=== PATIENT | male | born 1995 | race African-American/Black ===

== ENCOUNTER 2017-03-08 16:55 | Inpatient (IN) | payer MEDICAID, OTHER ==
[~2017-03-08] VITALS: Ht 182.9 cm; Wt 60.4 kg
[2017-03-08] MEDS ORDERED: LORazepam 2 MG/ML VIAL IM ONE (17:15)
[2017-03-08] MEDS ORDERED: ZIPRASIDONE MESYLATE 20 MG/VIAL IM ONE (17:15)
[2017-03-08 17:17] LABS: AMPHET/METH SCREEN,URINE NEGATIVE (NEGATIVE); BARBITURATE SCREEN, URINE NEGATIVE (NEGATIVE); BENZODIAZEPINES SCREEN,URINE NEGATIVE (NEGATIVE); CANNABINOID SCREEN,URINE POSITIVE (NEGATIVE); COCAINE SCREEN,URINE NEGATIVE (NEGATIVE); METHADONE SCREEN, URINE NEGATIVE (NEGATIVE); OPIATE SCREEN,URINE NEGATIVE (NEGATIVE); PHENCYCLIDINE SCREEN,URINE NEGATIVE (NEGATIVE)
[2017-03-08 17:18] LABS: BASOPHILS % (AUTO) 0.5 % (0.0-2.0); HEMATOCRIT 45.7 % (41-53); HEMOGLOBIN 15.2 g/dL (13.5-17.5); LYMPHOCYTES # (AUTO) 1.3 K/uL (1.0-4.8); LYMPHOCYTES % (AUTO) 23.2 % (22.0-44.0); MEAN CORPUSCULAR HEMOGLOBIN 26.5 pg (26.0-34.0); MEAN CORPUSCULAR HGB CONC 33.3 G/dL (31.0-37.0); MEAN CORPUSCULAR VOLUME 79 fL (80-100); MONOCYTES # (AUTO) 0.5 K/uL (0.1-1.0); MONOCYTES % (AUTO) 8.6 % (2.0-9.0); NEUTROPHILS # (AUTO) 3.8 K/uL (1.8-7.7); NEUTROPHILS % (AUTO) 66.7 % (40.0-70.0); PLATELET COUNT (AUTO) 209 K/uL (150-450); RED BLOOD CELL COUNT(AUTO) 5.76 MIL/uL (4.50-5.90)
[2017-03-08 17:25] LABS: ANION GAP 7 mmol/L (8-16); CALCIUM, TOTAL 9.4 mg/dL (8.8-10.5); CARBON DIOXIDE 31 mmol/L (22-29); CHLORIDE 101 mmol/L (98-107); CREATININE 1.12 mg/dL (0.60-1.30); GLOMERULAR FILTR. RATE CALC > 60 mL/min (>60); GLUCOSE,RANDOM 100 mg/dL (70-110); POTASSIUM 3.4 mmol/L (3.5-5.1); SODIUM SERUM 139 mmol/L (136-145); UREA NITROGEN, BLOOD 10 mg/dL (7-18)
[2017-03-08] MEDS ORDERED: ZOLPIDEM TARTRATE 10 MG TABLET PO PRN (17:30)
[2017-03-08 17:31] LABS: ALANINE AMINOTRANSFERASE 43 U/L (12-78); ALBUMIN 4.6 g/dL (3.4-5.0); ALKALINE PHOSPHATASE 76 U/L (46-116); ASPARTATE AMINOTRANSFERASE 23 U/L (15-37); BILIRUBIN,TOTAL 1.7 mg/dL (0.1-1.0); TOTAL PROTEIN, SERUM 8.9 g/dL (6.4-8.2)
[2017-03-09] MEDS: LORazepam 2 MG TABLET PO PRN (03:38)
[2017-03-09 06:34] LABS: CHOL/HDL RATIO 2.7 (4.2-7.3)
[2017-03-09] MEDS ORDERED: LORazepam 2 MG TABLET PO ONE (08:45)
[2017-03-09] MEDS: RisperiDONE 2 MG TABLET PO SCH ×2 (10:00→21:06)
[2017-03-09] MEDS ORDERED: LORazepam 2 MG/ML VIAL ONE (16:09)
[2017-03-09] MEDS ORDERED: DiphenhydrAMINE HCL 50 MG/ML VIAL ONE (16:10)
[2017-03-09] MEDS ORDERED: ZIPRASIDONE MESYLATE 20 MG/VIAL IM ONE ×2 (16:10→16:15)
[2017-03-09] MEDS ORDERED: DiphenhydrAMINE HCL 50 MG/ML VIAL IM ONE (16:15)
[2017-03-09] MEDS ORDERED: LORazepam 2 MG/ML VIAL IM ONE (16:15)
[2017-03-10] MEDS: RisperiDONE 2 MG TABLET PO SCH ×2 (09:47→17:38)
[2017-03-10 16:02] VITALS: BP 126/86
[2017-03-10] MEDS ORDERED: INFLUENZA VIRUS VACCINE QVS 2017-18 (3YR+)/PF 60 MCG/0.5 ML SYRINGE IM ONE (18:00)
[2017-03-11 06:41] VITALS: BP 129/94
[2017-03-11 08:15] VITALS: BP 123/74
[2017-03-11] MEDS: RisperiDONE 2 MG TABLET PO SCH (08:54)
[2017-03-11] MEDS ORDERED: MAG HYDROX/AL HYDROX/SIMETH ES 30 ML SUSPENSION UDCUP PO PRN (12:15)
[2017-03-11] MEDS ORDERED: TUBERCULIN, PURIFIED PROTEIN DERIVATIVE 5 TU/0.1 ML SYG ID ONE (12:15)
[2017-03-11] MEDS ORDERED: PROMETHAZINE HCL 25 MG TABLET PO PRN (12:15)
[2017-03-11] MEDS ORDERED: LOPERAMIDE HCL 2 MG CAPSULE PO PRN (12:15)
[2017-03-11] MEDS ORDERED: GuaiFENesin/D-METHORPHAN [SUGAR-FREE] 200-20MG/10 ML SYRUP UDCUP PO PRN (12:15)
[2017-03-11] MEDS ORDERED: ACETAMINOPHEN 325 MG TABLET PO PRN ×2 (12:15→17:30)
[2017-03-11] MEDS ORDERED: MAGNESIUM HYDROXIDE SUSPENSION 30 ML UDCUP PO PRN (12:15)
[2017-03-11] MEDS ORDERED: OLANZapine 5 MG RAPDIS TABLET PO PRN (12:15)
[2017-03-11] MEDS ORDERED: HydrOXYzine PAMOATE 50 MG CAPSULE PO PRN (12:15)
[2017-03-11] MEDS ORDERED: RisperiDONE 1 MG TABLET PO PRN (14:45)
[2017-03-11] MEDS: THIAMINE HCL 100 MG TABLET PO SCH (17:06)
[2017-03-11] MEDS: LORazepam 2 MG TABLET PO PRN (17:06)
[2017-03-11 17:30] VITALS: BP 106/79
[2017-03-11] MEDS ORDERED: IBUPROFEN 400 MG TABLET PO PRN (17:30)
[2017-03-11] MEDS ORDERED: OLANZapine 5 MG RAPDIS TABLET PO SCH (21:00)
[2017-03-12 06:33] VITALS: BP 113/73
[2017-03-12 08:11] VITALS: BP 124/79
[2017-03-12 08:59] LABS: ANION GAP 6 mmol/L (8-16); CALCIUM, TOTAL 9.1 mg/dL (8.8-10.5); CARBON DIOXIDE 31 mmol/L (22-29); CHLORIDE 103 mmol/L (98-107); CREATININE 0.93 mg/dL (0.60-1.30); GLOMERULAR FILTR. RATE CALC > 60 mL/min (>60); GLUCOSE,RANDOM 75 mg/dL (70-110); POTASSIUM 4.1 mmol/L (3.5-5.1); SODIUM SERUM 140 mmol/L (136-145); UREA NITROGEN, BLOOD 10 mg/dL (7-18)
[2017-03-12] MEDS ORDERED: RisperiDONE 2 MG TABLET PO SCH (09:00)
[2017-03-12] MEDS: MULTIVITAMINS WITH MINERALS, THERAPEUTIC TABLET PO SCH (09:06)
[2017-03-12] MEDS: THIAMINE HCL 100 MG TABLET PO SCH ×2 (09:06→16:47)
[2017-03-12] MEDS: NALTREXONE HCL 50 MG TABLET PO SCH (09:06)
[2017-03-12] MEDS: FOLIC ACID 1 MG TABLET PO SCH (09:06)
[2017-03-12 16:00] VITALS: BP 138/83
[2017-03-13 03:33] VITALS: BP 128/72
[2017-03-13 08:27] VITALS: BP 115/66
[2017-03-13] MEDS: FOLIC ACID 1 MG TABLET PO SCH (08:34)
[2017-03-13] MEDS: MULTIVITAMINS WITH MINERALS, THERAPEUTIC TABLET PO SCH (08:35)
[2017-03-13] MEDS: THIAMINE HCL 100 MG TABLET PO SCH (08:35)
[2017-03-13] MEDS: NALTREXONE HCL 50 MG TABLET PO SCH (08:35)
[2017-03-13] MEDS ORDERED: RisperiDONE 4 MG TABLET PO SCH (09:00)
[2017-03-13] MEDS ORDERED: NALT50TA PO (13:06)
[2017-03-13] MEDS ORDERED: RISP4 PO (13:06)
== END 2017-03-13 14:55 | disposition home or self-care (01) | DRG 750 ==
LOC: EEVIPCON 16:56 → EMS 16:56 → B3A 03-10 14:41 → B2S 03-12 18:55
PROVIDERS: ADMIT Psychiatry & Neurology Psychiatry; ATTEND Psychiatry & Neurology Psychiatry
PROC: 3E0234Z Introduction of Serum, Toxoid and Vaccine into Muscle, Percutaneous Approach (ICD-10-PCS; principal; 2017-03-10)
DX: F20.0 Paranoid schizophrenia (principal); R17 Unspecified jaundice; E87.6 Hypokalemia; F12.90 Cannabis use, unspecified, uncomplicated; F17.200 Nicotine dependence, unspecified, uncomplicated; F31.9 Bipolar disorder, unspecified; Z91.19 Patient's noncompliance with other medical treatment and regimen; Z65.3 Problems related to other legal circumstances; Z88.8 Allergy status to other drugs, medicaments and biological substances; Z23 Encounter for immunization
CPT/HCPCS: 87081; 90471; 96372; 99285; G0480; J1200; J2060; J3486

== ENCOUNTER 2017-09-27 00:08 | Emergency (ER) | payer MEDICAID, OTHER ==
[~2017-09-27] VITALS: Ht 177.8 cm; Wt 81.8 kg
[~2017-09-27 00:08] MED LIST: NALT50TA PO; RISP2 PO
[2017-09-27 00:14] VITALS: BP 138/64
[2017-09-27 00:34] LABS: BASOPHILS % (AUTO) 0.3 % (0.0-2.0); HEMOGLOBIN 13.9 g/dL (13.5-17.5); LYMPHOCYTES # (AUTO) 2.2 K/uL (1.0-4.8); LYMPHOCYTES % (AUTO) 29.3 % (22.0-44.0); MEAN CORPUSCULAR HEMOGLOBIN 25.9 pg (26.0-34.0); MEAN CORPUSCULAR HGB CONC 33.8 G/dL (31.0-37.0); MEAN CORPUSCULAR VOLUME 77 fL (80-100); MONOCYTES # (AUTO) 0.8 K/uL (0.1-1.0); MONOCYTES % (AUTO) 10.9 % (2.0-9.0); NEUTROPHILS # (AUTO) 4.4 K/uL (1.8-7.7); NEUTROPHILS % (AUTO) 58.5 % (40.0-70.0); PLATELET COUNT (AUTO) 189 K/uL (150-450); RED BLOOD CELL COUNT(AUTO) 5.35 MIL/uL (4.50-5.90); RED CELL DISTRIBUTION WIDTH 15.1 % (11.5-14.5)
[2017-09-27 00:47] LABS: ANION GAP 7 mmol/L (8-16); CARBON DIOXIDE 29 mmol/L (22-29); CHLORIDE 104 mmol/L (98-107); CREATININE 1.13 mg/dL (0.60-1.30); GLOMERULAR FILTR. RATE CALC > 60 mL/min (>60); GLUCOSE,RANDOM 111 mg/dL (70-110); POTASSIUM 3.2 mmol/L (3.5-5.1); SODIUM SERUM 140 mmol/L (136-145); UREA NITROGEN, BLOOD 9 mg/dL (7-18)
[2017-09-27 00:53] LABS: ALANINE AMINOTRANSFERASE 24 U/L (12-78); ALKALINE PHOSPHATASE 82 U/L (46-116); ASPARTATE AMINOTRANSFERASE 20 U/L (15-37); BILIRUBIN,TOTAL 1.4 mg/dL (0.1-1.0); TOTAL PROTEIN, SERUM 7.6 g/dL (6.4-8.2)
[2017-09-27 01:51] LABS: AMPHET/METH SCREEN,URINE NEGATIVE (NEGATIVE); BARBITURATE SCREEN, URINE NEGATIVE (NEGATIVE); BENZODIAZEPINES SCREEN,URINE NEGATIVE (NEGATIVE); CANNABINOID SCREEN,URINE POSITIVE (NEGATIVE); COCAINE SCREEN,URINE NEGATIVE (NEGATIVE); METHADONE SCREEN, URINE NEGATIVE (NEGATIVE); OPIATE SCREEN,URINE NEGATIVE (NEGATIVE)
[2017-09-27 01:52] LABS: PHENCYCLIDINE SCREEN,URINE NEGATIVE (NEGATIVE)
[2017-09-27] MEDS ORDERED: RisperiDONE 1 MG TABLET PO ONE (02:00)
== END 2017-09-27 05:00 | disposition home or self-care (01) ==
LOC: EMS 00:09
DX: F20.9 Schizophrenia, unspecified (principal); F31.9 Bipolar disorder, unspecified; Z88.8 Allergy status to other drugs, medicaments and biological substances
CPT/HCPCS: 36415; 80053; 80307; 85025; 99284; G0480

== ENCOUNTER 2023-08-08 12:29 | Inpatient (IN) | payer MEDICAID, OTHER ==
[~2023-08-08] VITALS: Ht 188 cm; Wt 68.0 kg
[~2023-08-08 12:29] MED LIST changes: -NALT50TA PO; +NALT50TA6 PO; -RISP2 PO; +RISP2TAB45 PO
[2023-08-08] MEDS ORDERED: BENZ142C8 TP (13:05)
[2023-08-08] MEDS ORDERED: FLUT16H NASAL (13:05)
[2023-08-08] MEDS ORDERED: CETI10TA58 PO (13:05)
[2023-08-08] MEDS ORDERED: CLIN30SO2 TP (13:05)
[2023-08-08] MEDS ORDERED: NYST30CR9 TP (13:05)
[2023-08-08] MEDS: DiphenhydrAMINE HCL 25 MG CAPSULE PO ONE (13:50)
[2023-08-08] MEDS: LORazepam 2 MG TABLET PO ONE (13:50)
[2023-08-08] MEDS: OLANZapine 10 MG TABLET PO ONE (13:50)
[2023-08-08 14:12] LABS: COVID AG,FIA SOURCE NASAL SWAB
[2023-08-08 15:00] LABS: SARS-COV2 (COVID) ANTIGEN,FIA Negative (Negative)
[2023-08-08 17:27] VITALS: BP 126/87; PULSE 61; RESP 17; TEMP 97.5
[2023-08-08 21:11] VITALS: RESP 18
[2023-08-09] MEDS ORDERED: LOPERAMIDE HCL 2 MG CAPSULE PO PRN (10:00)
[2023-08-09] MEDS ORDERED: GuaiFENesin/D-METHORPHAN [SUGAR-FREE] 200-20MG/10 ML SYRUP UDCUP PO PRN (10:00)
[2023-08-09] MEDS ORDERED: ACETAMINOPHEN 325 MG TABLET PO PRN (10:00)
[2023-08-09] MEDS ORDERED: CloNIDine HCL 0.1 MG TABLET PO PRN (10:00)
[2023-08-09] MEDS ORDERED: PETROLATUM,WHITE 28 GM JELLY TP PRN (10:00)
[2023-08-09] MEDS ORDERED: ONDANSETRON HCL 4 MG TABLET PO PRN (10:00)
[2023-08-09] MEDS ORDERED: MAG HYDROX/ALUMINUM HYD/SIMETH ES 30 ML SUSPENSION UDCUP PO PRN (10:00)
[2023-08-09] MEDS ORDERED: IBUPROFEN 400 MG TABLET PO PRN (10:00)
[2023-08-09] MEDS ORDERED: NICOTINE 14 MG/24 HOUR PATCH TD PRN (10:00)
[2023-08-09] MEDS ORDERED: MAGNESIUM HYDROXIDE SUSPENSION 30 ML UDCUP PO PRN (10:00)
[2023-08-09] MEDS ORDERED: ALBUTEROL SULFATE HFA 90 MCG/PUFF 8 GM INHALER IH PRN (10:00)
[2023-08-09] MEDS ORDERED: DOCUSATE SODIUM 100 MG CAPSULE PO PRN (10:00)
[2023-08-09 10:19] VITALS: BP 122/68; PULSE 122; PULSE 61; RESP 18; TEMP 98.3
[2023-08-09] MEDS: RisperiDONE 1 MG TABLET PO SCH (14:45)
[2023-08-10] MEDS: CETIRIZINE HCL 10 MG TABLET PO SCH (09:00)
[2023-08-10] MEDS: FLUTICASONE PROPIONATE 50 MCG/SPRAY 16 GM NASAL SPRAY NASAL SCH (09:00)
[2023-08-10 09:06] VITALS: BP 109/66; PULSE 58; RESP 16; TEMP 98.8
[2023-08-10 22:30] VITALS: RESP 19
[2023-08-11 18:48] VITALS: RESP 18
[2023-08-11 20:17] VITALS: RESP 18
[2023-08-11] MEDS: OLANZapine 5 MG TABLET PO PRN (21:04)
[2023-08-11] MEDS: ZOLPIDEM TARTRATE 10 MG TABLET PO PRN (21:04)
[2023-08-11] MEDS: ChlorproMAZINE HCL 50 MG/2 ML AMP IM ONE (22:37)
[2023-08-11] MEDS: DiphenhydrAMINE HCL 50 MG/ML VIAL IM ONE (22:37)
[2023-08-11] MEDS: LORazepam 2 MG/ML VIAL IM ONE (22:37)
[2023-08-12 10:10] VITALS: RESP 18
[2023-08-12 20:17] VITALS: RESP 18
[2023-08-13] MEDS: DiphenhydrAMINE HCL 50 MG/ML VIAL IM ONE (08:34)
[2023-08-13] MEDS: LORazepam 2 MG/ML VIAL IM ONE (08:34)
[2023-08-13] MEDS: ChlorproMAZINE HCL 50 MG/2 ML AMP IM ONE (08:34)
[2023-08-13 11:12] VITALS: RESP 17
[2023-08-13 20:57] VITALS: RESP 18
[2023-08-14 11:30] VITALS: RESP 18
[2023-08-14 21:12] VITALS: RESP 18
[2023-08-15 08:58] VITALS: RESP 19
[2023-08-15] MEDS ORDERED: ChlorproMAZINE HCL 50 MG/2 ML AMP ONE (18:05)
[2023-08-15] MEDS ORDERED: LORazepam 2 MG/ML VIAL ONE (18:05)
[2023-08-15] MEDS ORDERED: DiphenhydrAMINE HCL 50 MG/ML VIAL ONE (18:05)
[2023-08-15] MEDS: ChlorproMAZINE HCL 50 MG/2 ML AMP IM ONE (18:18)
[2023-08-15] MEDS: LORazepam 2 MG/ML VIAL IM ONE (18:19)
[2023-08-15] MEDS: DiphenhydrAMINE HCL 50 MG/ML VIAL IM ONE (18:19)
[2023-08-16 20:51] VITALS: RESP 16
[2023-08-17] MEDS: ChlorproMAZINE HCL 50 MG/2 ML AMP IM ONE ×2 (02:54→12:20)
[2023-08-17] MEDS: DiphenhydrAMINE HCL 50 MG/ML VIAL IM ONE ×2 (02:54→12:21)
[2023-08-17] MEDS: LORazepam 2 MG/ML VIAL IM ONE ×2 (02:54→12:20)
[2023-08-17] MEDS: LORazepam 2 MG TABLET PO PRN (08:11)
[2023-08-17 20:33] VITALS: RESP 17
[2023-08-18 08:41] VITALS: RESP 18
[2023-08-18 20:24] VITALS: RESP 16
[2023-08-19 08:48] VITALS: RESP 17
[2023-08-19 20:29] VITALS: BP 122/76; PULSE 72; TEMP 98.6; O2SAT 100
[2023-08-20 08:58] VITALS: RESP 18
[2023-08-20 20:34] VITALS: BP 111/78; PULSE 60; TEMP 98; O2SAT 99
[2023-08-21 08:40] VITALS: BP 142/88; PULSE 74; RESP 17; TEMP 98.2; O2SAT 99
[2023-08-22 09:03] VITALS: RESP 18
[2023-08-23 11:03] VITALS: BP 124/72; PULSE 76; RESP 17; TEMP 98; O2SAT 99
[2023-08-23 20:51] VITALS: BP 118/70; PULSE 72; RESP 17; TEMP 98; O2SAT 99
[2023-08-24 10:42] VITALS: RESP 17
[2023-08-24 20:30] VITALS: BP 135/57; PULSE 72; TEMP 98.4; O2SAT 99
[2023-08-25] MEDS: LORazepam 2 MG/ML VIAL IM ONE (14:51)
[2023-08-25] MEDS: DiphenhydrAMINE HCL 50 MG/ML VIAL IM ONE (14:51)
[2023-08-25] MEDS: ChlorproMAZINE HCL 50 MG/2 ML AMP IM ONE (14:51)
[2023-08-25 20:00] VITALS: BP 116/72; PULSE 72; RESP 16; TEMP 98; O2SAT 98
[2023-08-26 20:10] VITALS: BP 110/62; PULSE 84; RESP 16; TEMP 98.2
[2023-08-27 08:51] VITALS: RESP 17
[2023-08-27 21:26] VITALS: BP 122/75; PULSE 73; RESP 16; TEMP 97.7; O2SAT 73
[2023-08-28 09:58] VITALS: RESP 16
[2023-08-28] MEDS ORDERED: LORazepam 2 MG/ML VIAL IM ONE (14:45)
[2023-08-28] MEDS ORDERED: ChlorproMAZINE HCL 50 MG/2 ML AMP IM ONE (14:45)
[2023-08-28] MEDS ORDERED: DiphenhydrAMINE HCL 50 MG/ML VIAL IM ONE (14:45)
[2023-08-29 09:13] VITALS: RESP 17
[2023-08-29 20:22] VITALS: RESP 17
[2023-08-30 20:21] VITALS: RESP 16
[2023-08-31 21:24] VITALS: BP 109/83; PULSE 70; O2SAT 100
[2023-09-01 08:36] VITALS: RESP 18
[2023-09-02 08:07] VITALS: RESP 18
[2023-09-02] MEDS: RisperiDONE 2 MG TABLET PO ONE (09:56)
[2023-09-02] MEDS: ChlorproMAZINE HCL 50 MG/2 ML AMP IM PRN (09:56)
[2023-09-02] MEDS: RisperiDONE 2 MG TABLET PO SCH (21:59)
[2023-09-03 08:21] VITALS: RESP 18
[2023-09-03 08:21] LABS: APPEARANCE,URINE CLEAR (CLEAR); BILIRUBIN,URINE NEGATIVE (NEGATIVE); COLOR,URINE LIGHT YELLOW (YELLOW); GLUCOSE, URINE (UA) NEGATIVE (NEGATIVE); KETONES,URINE NEGATIVE (NEGATIVE); LEUKOCYTE ESTERASE ,URINE NEGATIVE (NEGATIVE); NITRATE,URINE NEGATIVE (NEGATIVE); OCCULT BLOOD,URINE NEGATIVE (NEGATIVE); PROTEIN,URINE NEGATIVE (NEGATIVE); SPECIFIC GRAVITIY, URINE 1.008 (1.003-1.030); UROBILINOGEN,URINE <=1.0 mg/dL (<=1.0)
[2023-09-03 08:36] LABS: ALCOHOL, URINE DRUG SCREEN NEGATIVE (NEGATIVE); AMPHET/METH SCREEN,URINE NEGATIVE (NEGATIVE); BARBITURATE SCREEN, URINE NEGATIVE (NEGATIVE); BENZODIAZEPINES SCREEN,URINE NEGATIVE (NEGATIVE); CANNABINOID SCREEN,URINE NEGATIVE (NEGATIVE); COCAINE SCREEN,URINE NEGATIVE (NEGATIVE); METHADONE SCREEN, URINE NEGATIVE (NEGATIVE); OPIATE SCREEN,URINE NEGATIVE (NEGATIVE); PHENCYCLIDINE SCREEN,URINE NEGATIVE (NEGATIVE)
[2023-09-04 08:26] VITALS: RESP 17
[2023-09-05 08:18] LABS: BASOPHILS % (AUTO) 0.4 % (0.0-2.0); EOSINOPHILS % (AUTO) 0.9 % (1.0-6.0); HEMATOCRIT 39.4 % (41-53); HEMOGLOBIN 12.6 g/dL (13.5-17.5); LYMPHOCYTES # (AUTO) 1.6 K/uL (1.0-4.8); LYMPHOCYTES % (AUTO) 27.3 % (22.0-44.0); MEAN CORPUSCULAR HEMOGLOBIN 25.3 pg (26.0-34.0); MEAN CORPUSCULAR VOLUME 79 fL (80-100); MONOCYTES # (AUTO) 0.7 K/uL (0.1-1.0); MONOCYTES % (AUTO) 11.8 % (2.0-9.0); NEUTROPHILS # (AUTO) 3.4 K/uL (1.8-7.7); NEUTROPHILS % (AUTO) 59.6 % (40.0-70.0); PLATELET COUNT (AUTO) 213 K/uL (150-450); RED BLOOD CELL COUNT(AUTO) 4.98 MIL/uL (4.50-5.90); RED CELL DISTRIBUTION WIDTH 15.4 % (11.5-14.5); WHITE BLOOD COUNT (AUTO) 5.7 K/uL (4.5-11.0)
[2023-09-05 08:24] VITALS: BP 101/61; PULSE 72; RESP 16; TEMP 98.7; O2SAT 100
[2023-09-05 09:05] LABS: CALCIUM, TOTAL 8.8 mg/dL (8.8-10.5); CARBON DIOXIDE 31 mmol/L (22-29); CHLORIDE 102 mmol/L (98-107); CHOL/HDL RATIO 2.5 (4.2-7.3); CHOLESTEROL 135 mg/dL (131-200); CREATININE 0.94 mg/dL (0.60-1.30); FREE T4 (FREE THYROXINE) 0.95 ng/dL (0.76-1.46); GLOMERULAR FILTR. RATE CALC > 60 mL/min (>60); GLUCOSE,RANDOM 96 mg/dL (70-110); HDL CHOLESTEROL 55 mg/dL (40-60); LDL CHOL (CALC.) 70 mg/dL (0-130); THYROID STIMULATING HORMONE 2.24 uIU/mL (0.36-3.74); TRIGLYCERIDES 49 mg/dL (15-150); UREA NITROGEN, BLOOD 10 mg/dL (7-18)
[2023-09-05 09:09] LABS: ANION GAP 4 mmol/L (8-16); HEMOGLOBIN A1C 5.7 % (3.8-5.6); SODIUM SERUM 138 mmol/L (136-145)
[2023-09-05] MEDS ORDERED: BUPIVACAINE HCL/PF 0.5% 30 ML VIAL ONE (11:58)
[2023-09-05] MEDS ORDERED: LIDOCAINE/PF 2% 5 ML VIAL ONE (11:58)
[2023-09-05 20:31] VITALS: BP 120/78; PULSE 105; RESP 20; TEMP 98.6; O2SAT 97
[2023-09-06 09:36] VITALS: RESP 17
[2023-09-06 21:33] VITALS: BP 128/79; PULSE 77; RESP 18; TEMP 97.7
[2023-09-07 10:05] VITALS: BP 115/85; PULSE 90; RESP 18; TEMP 98.2
[2023-09-07 20:20] VITALS: BP 103/62; PULSE 73; RESP 18; TEMP 97.7; O2SAT 100
[2023-09-08 08:30] VITALS: RESP 18
[2023-09-08 20:40] VITALS: BP 108/74; PULSE 88; TEMP 97.7; O2SAT 100
[2023-09-09 08:23] VITALS: BP 123/97; PULSE 82; RESP 17; TEMP 97.5; O2SAT 96
[2023-09-09 20:31] VITALS: BP 121/86; PULSE 110; RESP 17; TEMP 97.7
[2023-09-10 08:49] VITALS: RESP 18
[2023-09-10 20:34] VITALS: BP 132/88; PULSE 62; RESP 17; TEMP 98
[2023-09-11 12:26] VITALS: BP 111/78; PULSE 79; RESP 18; TEMP 98.2; O2SAT 100
[2023-09-12 09:32] VITALS: BP 130/83; PULSE 77; RESP 16; TEMP 97.5; O2SAT 100
[2023-09-12 20:46] VITALS: RESP 18
[2023-09-13 10:28] VITALS: RESP 18
[2023-09-13 20:51] VITALS: RESP 18
[2023-09-14 09:34] VITALS: BP 118/75; PULSE 61; RESP 17; TEMP 97.5; O2SAT 100
[2023-09-14] MEDS: PARoxetine HCL 10 MG TABLET PO SCH (10:30)
[2023-09-14 22:09] VITALS: RESP 18
[2023-09-15 11:33] VITALS: RESP 18
[2023-09-15 20:50] VITALS: RESP 18
[2023-09-16 08:53] VITALS: BP 100/68; PULSE 70; RESP 18; TEMP 97.3; O2SAT 100
[2023-09-17 00:53] VITALS: RESP 18
[2023-09-17 08:58] VITALS: RESP 18
[2023-09-17 20:24] VITALS: BP 107/74; PULSE 102; RESP 17; TEMP 97.5; O2SAT 90
[2023-09-18 10:30] VITALS: RESP 17
[2023-09-19 08:39] VITALS: RESP 18
[2023-09-19 20:52] VITALS: RESP 18
[2023-09-20 09:09] VITALS: BP 152/86; PULSE 96; RESP 20; TEMP 98; O2SAT 99
[2023-09-20 20:22] VITALS: BP 109/67; PULSE 84; RESP 18; TEMP 98.6; O2SAT 100
[2023-09-21 08:10] VITALS: RESP 16
[2023-09-21 20:24] VITALS: BP 111/68; PULSE 72; RESP 20; TEMP 98.6; O2SAT 98
[2023-09-22 08:37] VITALS: RESP 18
[2023-09-22] MEDS ORDERED: CETI-450 PO (10:42)
[2023-09-22] MEDS ORDERED: PARO10TA71 PO (10:42)
[2023-09-22] MEDS ORDERED: RISP-32 PO (10:42)
== END 2023-09-22 15:20 | disposition home or self-care (01) | DRG 750 ==
LOC: EMS 12:42 → EDH 16:13 → 3EI 16:18 → 3EC 08-12 18:43 → B3A 08-15 20:44
PROVIDERS: ADMIT Psychiatry & Neurology Psychiatry; ATTEND Psychiatry & Neurology Psychiatry
PROC: GZHZZZZ Group Psychotherapy (ICD-10-PCS; principal; 2023-08-09)
PROC: GZ52ZZZ Individual Psychotherapy, Cognitive (ICD-10-PCS; 2023-08-09)
DX: F25.1 Schizoaffective disorder, depressive type (principal); G93.40 Encephalopathy, unspecified; E43 Unspecified severe protein-calorie malnutrition; Z20.822 Contact with and (suspected) exposure to COVID-19; Z68.1 Body mass index [BMI] 19.9 or less, adult; J30.9 Allergic rhinitis, unspecified; Z59.00 Homelessness unspecified; Z79.899 Other long term (current) drug therapy; Z91.148 Patient's other noncompliance with medication regimen for other reason; Z88.8 Allergy status to other drugs, medicaments and biological substances
CPT/HCPCS: 80048; 80061; 80307; 81003; 83036; 84439; 84443; 85025; 87081; 99285; J1200; J2060; J3230; J3490

== ENCOUNTER 2023-09-22 08:51 | Emergency (ER) | payer MEDICAID, OTHER ==
[~2023-09-22] VITALS: Ht 182.9 cm; Wt 65.9 kg
[~2023-09-22 08:51] MED LIST changes: +BENZ142C8 TP; +CETI10TA58 PO; +CLIN30SO2 TP; +FLUT16H NASAL; +NYST30CR9 TP
[2023-09-22 09:48] VITALS: BP 153/73; PULSE 92; RESP 18; TEMP 98.4
[2023-09-22] MEDS: AMOX TR/POT CLAV 875 MG/125 MG TABLET PO ONE (09:55)
[2023-09-22] MEDS: PERTUSS(ACELL),DIPH,TET/PF 0.5 ML SYRINGE [ADULT] IM. ONE (09:56)
[2023-09-22] MEDS: SODIUM CHLORIDE 0.9% 250 ML IRRIG SOLUTION BOTTLE IRRIG ONE (09:56)
[2023-09-22] MEDS: BACITRACIN 0.9 GM PACKET OINTMENT TP ONE (09:57)
[2023-09-22] MEDS: IBUPROFEN 600 MG TABLET PO ONE (10:24)
[2023-09-22] MEDS ORDERED: RISP-32 PO (10:42)
[2023-09-22] MEDS ORDERED: CETI-450 PO (10:42)
[2023-09-22] MEDS ORDERED: PARO10TA71 PO (10:42)
[2023-09-22 10:59] LABS: BASOPHILS % (AUTO) 0.7 % (0.0-2.0); EOSINOPHILS % (AUTO) 1.4 % (1.0-6.0); HEMATOCRIT 41.6 % (41-53); HEMOGLOBIN 13.2 g/dL (13.5-17.5); LYMPHOCYTES # (AUTO) 1.3 K/uL (1.0-4.8); LYMPHOCYTES % (AUTO) 28.1 % (22.0-44.0); MEAN CORPUSCULAR HEMOGLOBIN 24.9 pg (26.0-34.0); MEAN CORPUSCULAR HGB CONC 31.7 G/dL (31.0-37.0); MEAN CORPUSCULAR VOLUME 79 fL (80-100); MONOCYTES # (AUTO) 0.5 K/uL (0.1-1.0); MONOCYTES % (AUTO) 10.8 % (2.0-9.0); NEUTROPHILS # (AUTO) 2.6 K/uL (1.8-7.7); PLATELET COUNT (AUTO) 205 K/uL (150-450); RED BLOOD CELL COUNT(AUTO) 5.28 MIL/uL (4.50-5.90); RED CELL DISTRIBUTION WIDTH 15.9 % (11.5-14.5); WHITE BLOOD COUNT (AUTO) 4.5 K/uL (4.5-11.0)
[2023-09-22 11:09] LABS: ANION GAP 2 mmol/L (8-16); CALCIUM, TOTAL 9.4 mg/dL (8.8-10.5); CARBON DIOXIDE 35 mmol/L (22-29); CHLORIDE 102 mmol/L (98-107); CREATININE 0.83 mg/dL (0.60-1.30); GLOMERULAR FILTR. RATE CALC > 60 mL/min (>60); GLUCOSE,RANDOM 98 mg/dL (70-110); POTASSIUM 3.9 mmol/L (3.5-5.1); SODIUM SERUM 139 mmol/L (136-145); UREA NITROGEN, BLOOD 11 mg/dL (7-18)
[2023-09-22 11:20] LABS: ALANINE AMINOTRANSFERASE 50 U/L (12-78); ALBUMIN 3.6 g/dL (3.4-5.0); ALKALINE PHOSPHATASE 58 U/L (46-116); ASPARTATE AMINOTRANSFERASE 25 U/L (15-37); BILIRUBIN,TOTAL 0.7 mg/dL (0.1-1.0); TOTAL PROTEIN, SERUM 7.7 g/dL (6.4-8.2)
[2023-09-23 02:06] LABS: HEPATITIS C AB (EIA) Non Reactive (Non Reactive)
[2023-09-23 03:06] LABS: HIV 1-2 SCREEN 4TH GEN W/RFLX Non Reactive (Non Reactive)
== END 2023-09-22 13:11 ==
LOC: EMS 08:55
DX: S21.252A Open bite of left back wall of thorax without penetration into thoracic cavity, initial encounter (principal); S11.85XA Open bite of other specified part of neck, initial encounter; S61.452A Open bite of left hand, initial encounter; F20.9 Schizophrenia, unspecified; Z88.8 Allergy status to other drugs, medicaments and biological substances; Y04.1XXA Assault by human bite, initial encounter; Y93.89 Activity, other specified; Y92.89 Other specified places as the place of occurrence of the external cause; Y99.8 Other external cause status
CPT/HCPCS: 80053; 85025; 86706; 86803; 87340; 87389; 90471; 90715; 99284

== ENCOUNTER 2023-09-23 22:36 | Emergency (ER) | payer OTHER ==
[~2023-09-23] VITALS: Ht 182.9 cm; Wt 65.9 kg
[~2023-09-23 22:36] MED LIST changes: -BENZ142C8 TP; +CETI-450 PO; -CETI10TA58 PO; -CLIN30SO2 TP; -FLUT16H NASAL; -NALT50TA6 PO; -NYST30CR9 TP; +PARO10TA71 PO; +RISP-32 PO; -RISP2TAB45 PO
[2023-09-23 22:47] VITALS: BP 110/70; PULSE 70; RESP 18; TEMP 98.7
[2023-09-23 23:12] LABS: BASOPHILS % (AUTO) 1.1 % (0.0-2.0); EOSINOPHILS % (AUTO) 1.9 % (1.0-6.0); HEMATOCRIT 36.3 % (41-53); HEMOGLOBIN 11.7 g/dL (13.5-17.5); LYMPHOCYTES # (AUTO) 1.7 K/uL (1.0-4.8); LYMPHOCYTES % (AUTO) 24.9 % (22.0-44.0); MEAN CORPUSCULAR HEMOGLOBIN 25.1 pg (26.0-34.0); MEAN CORPUSCULAR HGB CONC 32.2 G/dL (31.0-37.0); MEAN CORPUSCULAR VOLUME 78 fL (80-100); MONOCYTES # (AUTO) 0.8 K/uL (0.1-1.0); MONOCYTES % (AUTO) 12.5 % (2.0-9.0); NEUTROPHILS # (AUTO) 3.9 K/uL (1.8-7.7); NEUTROPHILS % (AUTO) 59.6 % (40.0-70.0); PLATELET COUNT (AUTO) 183 K/uL (150-450); RED BLOOD CELL COUNT(AUTO) 4.66 MIL/uL (4.50-5.90); RED CELL DISTRIBUTION WIDTH 15.8 % (11.5-14.5); WHITE BLOOD COUNT (AUTO) 6.6 K/uL (4.5-11.0)
[2023-09-23 23:18] LABS: RBC MORPHOLOGY COMMENT ABNORMAL RBC MORPH
[2023-09-23 23:21] LABS: ANION GAP 4 mmol/L (8-16); CALCIUM, TOTAL 8.6 mg/dL (8.8-10.5); CARBON DIOXIDE 31 mmol/L (22-29); CHLORIDE 104 mmol/L (98-107); GLOMERULAR FILTR. RATE CALC > 60 mL/min (>60); GLUCOSE,RANDOM 89 mg/dL (70-110); POTASSIUM 4.1 mmol/L (3.5-5.1); SODIUM SERUM 139 mmol/L (136-145); UREA NITROGEN, BLOOD 11 mg/dL (7-18)
[2023-09-23 23:25] LABS: ALCOHOL, BLOOD (SERUM) < 3 mg/dL (0-10)
== END 2023-09-24 01:09 | disposition left against medical advice (07) ==
LOC: EMS 22:38
DX: Z53.21 Procedure and treatment not carried out due to patient leaving prior to being seen by health care provider (principal)
CPT/HCPCS: 36415; 80048; 85025; G0480